=== PATIENT | male | born 1955 | race Caucasian/White ===

== ENCOUNTER → 2023-08-27 08:49 | Outpatient (REF) | payer MEDICARE, SELFPAY | LOC: HWRAD 08:49 | PROVIDERS: ATTENDING PHYSICIAN Internal Medicine Critical Care Medicine; FAMILY PHYSICIAN Family Medicine | DX: C34.91 Malignant neoplasm of unspecified part of right bronchus or lung (principal) | CPT/HCPCS: 71250 ==

== ENCOUNTER → 2024-03-21 15:32 | Outpatient (REF) | payer MEDICARE, SELFPAY | LOC: HWRAD 15:32 | PROVIDERS: ATTENDING PHYSICIAN Internal Medicine Critical Care Medicine; FAMILY PHYSICIAN Family Medicine | DX: C44.92 Squamous cell carcinoma of skin, unspecified (principal) | CPT/HCPCS: 71250 ==

== ENCOUNTER → 2024-11-14 14:13 | Outpatient (REF) | payer MEDICARE, SELFPAY | LOC: HWRAD 14:13 | PROVIDERS: ATTENDING PHYSICIAN Internal Medicine Critical Care Medicine | DX: Z85.118 Personal history of other malignant neoplasm of bronchus and lung (principal); R91.1 Solitary pulmonary nodule | CPT/HCPCS: 71250 ==